=== PATIENT | female | born 1945 | race Caucasian/White ===

== ENCOUNTER → 2016-11-18 | Outpatient (CLI) | payer MEDICARE, OTHER ==
[~2016-11-18] MED LIST: ADDERALL20 MG PO; AMPHETAMINE/DEX30 MG PO; ASPI-COR81 M1 PO; CELEXA20 MG PO; CLARITIN10 MG PO; FLUOXETINE HYDR20 M1 PO; LANTUS SOLOS100 U/M1 SC; MACROBID100 M1 PO; METFORMIN HCL750 MG PO; PRILOSEC20 MG PO; SIMVASTATIN20 MG PO; ZOFRAN ODT4 MG SL; [UNRECOGNIZED DRUG - SUPPLY] SC
--- NOTE | ~2016-11-18 | EKG ---
[place], [place] ELECTROCARDIOGRAM REPORT NAME: SIA LAUREANO UNIT #: [id number] ROOM: DOCTOR: KALYAN GAUTHIER MD BIRTHDATE: [birth year] DOS: 11/18/2016 TIME: 14:46. Normal sinus rhythm, abnormal R-wave progression with early transition, otherwise normal tracing. KALYAN GAUTHIER MD CM:EKGRPT:ELECTROCARDIOGRAM REPORT 14 48 KALYAN GAUTHIER MD
[2016-11-18 15:09] LABS: BASO % 0.3 % (0.0-1.0); EOS # 0.1 10*3/uL (0.0-0.4); EOS % 1.9 % (1.0-4.0); HEMATOCRIT 41.6 % (37.0-47.0); HEMOGLOBIN 13.6 g/dl (12.0-16.0); LYMPH # 1.7 10*3/uL (1.3-4.4); LYMPH % 24.8 % (27.0-41.0); MEAN CELL VOLUME 88.3 fl (81.0-99.0); MEAN CORPUSCULAR HGB 28.9 pg (27.0-31.0); MEAN CORPUSCULAR HGB CONC 32.7 g/dl (33.0-37.0); MEAN PLATELET VOLUME 11.9 fl (9.6-12.3); MONO # 0.5 10*3/uL (0.1-1.0); MONO % 8.1 % (3.0-9.0); NEUT # 4.3 10*3/uL (2.3-7.9); NEUT % 64.5 % (47.0-73.0); PLATELET COUNT AUTOMATED 249 10*3/uL (130-400); RED BLOOD COUNT 4.71 10*6/uL (4.10-5.10); RED CELL DISTRI WIDTH 12.9 % (0-14.5); WHITE BLOOD COUNT 6.7 10*3/uL (4.8-10.8)
[2016-11-18 15:22] LABS: BUN 17 mg/dl (7-24); CARBON DIOXIDE 23 mmol/L (21-32); CHLORIDE 110 mmol/L (98-107); EST GLOM FILT AFRICAN AMERICAN > 60 ml/min; GLUCOSE 82 mg/dL (65-99); POTASSIUM 4.3 mmol/L (3.5-5.1); SODIUM 142 mmol/L (136-145)
== END | disposition home or self-care (01) ==
LOC: LAB 14:27
PROVIDERS: Specialist
DX: C50.512 Malignant neoplasm of lower-outer quadrant of left female breast (principal); Z87.891 Personal history of nicotine dependence

== ENCOUNTER → 2016-11-25 | Outpatient (CLI) | payer MEDICARE, OTHER | END | disposition home or self-care (01) | LOC: CT 09:55 | DX: R06.02 Shortness of breath (principal) ==

== ENCOUNTER → 2016-11-29 | Outpatient (CLI) | payer MEDICARE, OTHER ==
[~2016-11-29] MED LIST changes: +ARIMIDEX1 MG PO; +FLUOXETINE HYDR40 MG PO; +LEVOTHYROXIN0.075 MG PO; +LEVOTHYROXINE0.05 MG PO
--- NOTE | ~2016-11-29 | ST ---
[place], [place] EXERCISE STRESS TEST REPORT NAME: SIA LAUREANO UNIT #: [id number] ROOM: DOCTOR: STEVEN DIMAS MD BIRTHDATE: [birth year] DOS: 11/29/2016 LEXISCAN STRESS TEST REASON FOR TESTING: Evaluation of an abnormal EKG. DESCRIPTION: After explaining the procedure and obtaining consent, the patient was subjected to Lexiscan infusion. Her resting heart rate was 73 with a blood pressure of 138/74. EKG showed sinus, nonspecific ST-T wave changes. The patient did not have any complaints during the Lexiscan infusion. After infusion was over, she was injected with Cardiolite and stress images were taken. ASSESSMENT AND PLAN: Lexiscan stress test without any ST-T wave changes or arrhythmias. Cardiolite images pending. STEVEN DIMAS MD CM:STRESS:EXERCISE STRESS TEST REPORT [id number] STEVEN DIMAS MD
== END | disposition home or self-care (01) ==
LOC: CARD 02:54
DX: R06.02 Shortness of breath (principal); R07.89 Other chest pain; R94.31 Abnormal electrocardiogram [ECG] [EKG]

== ENCOUNTER → 2017-07-03 | Outpatient (CLI) | payer MEDICARE, OTHER ==
[2017-07-03 09:41] LABS: BASO % 0.5 % (0.0-1.0); EOS # 0.1 10*3/uL (0.0-0.4); EOS % 1.8 % (1.0-4.0); HEMATOCRIT 44.4 % (37.0-47.0); HEMOGLOBIN 14.6 g/dl (12.0-16.0); LYMPH # 1.1 10*3/uL (1.3-4.4); LYMPH % 18.8 % (27.0-41.0); MEAN CELL VOLUME 89.3 fl (81.0-99.0); MEAN CORPUSCULAR HGB 29.4 pg (27.0-31.0); MEAN CORPUSCULAR HGB CONC 32.9 g/dl (33.0-37.0); MEAN PLATELET VOLUME 11.6 fl (9.6-12.3); MONO # 0.5 10*3/uL (0.1-1.0); MONO % 8.1 % (3.0-9.0); NEUT # 4.2 10*3/uL (2.3-7.9); NEUT % 70.3 % (47.0-73.0); PLATELET COUNT AUTOMATED 215 10*3/uL (130-400); RED BLOOD COUNT 4.97 10*6/uL (4.10-5.10); RED CELL DISTRI WIDTH 12.9 % (0-14.5)
[2017-07-03 10:13] LABS: ALBUMIN 3.9 gm/dl (3.1-4.5); ALKALINE PHOSPHATASE 83 U/L (45-117); BUN 16 mg/dl (7-24); CHLORIDE 103 mmol/L (98-107); CHOLESTEROL 173 mg/dL (<200); CREATININE 0.93 mg/dL (0.55-1.02); FREE T4 1.24 ng/dl (0.76-1.46); HDL CHOLESTEROL 68 mg/dl (40-60); LDL CHOLESTEROL 77 mg/dL (9-159); SGOT/AST 18 IU/L (3-35); SGPT/ALT 28 U/L (12-78); SODIUM 140 mmol/L (136-145); TOTAL PROTEIN 7.5 gm/dL (6.4-8.2); TRIGLYCERIDES 139 mg/dl (<150); VLDL CHOLESTEROL 28 mg/dL (6-40)
[2017-07-03 10:54] LABS: VITAMIN D, 25-HYDROXY 78.1 ng/mL (30-100)
[2017-07-04 18:07] LABS: THYROGLOBULIN ANTIBODY 41.3 IU/mL (0.0-0.9)
== END | disposition home or self-care (01) ==
LOC: LAB 09:01
PROVIDERS: Internal Medicine Endocrinology, Diabetes & Metabolism
DX: E11.65 Type 2 diabetes mellitus with hyperglycemia (principal); K21.9 Gastro-esophageal reflux disease without esophagitis; E78.00 Pure hypercholesterolemia, unspecified; M54.08 Panniculitis affecting regions of neck and back, sacral and sacrococcygeal region; E55.9 Vitamin D deficiency, unspecified; E53.8 Deficiency of other specified B group vitamins; R19.7 Diarrhea, unspecified; R53.83 Other fatigue; R51 Headache; R23.2 Flushing

== ENCOUNTER → 2017-07-21 | Outpatient (CLI) | payer MEDICARE, OTHER | END | disposition home or self-care (01) | LOC: RAD 13:30 | DX: Z13.820 Encounter for screening for osteoporosis (principal); M81.0 Age-related osteoporosis without current pathological fracture; M89.8X9 Other specified disorders of bone, unspecified site; T45.1X5A Adverse effect of antineoplastic and immunosuppressive drugs, initial encounter; Z78.0 Asymptomatic menopausal state; Z85.3 Personal history of malignant neoplasm of breast ==

== ENCOUNTER → 2018-01-03 | Outpatient (CLI) | payer MEDICARE, OTHER ==
[2018-01-03 10:10] LABS: BASO % 0.4 % (0.0-1.0); EOS # 0.2 10*3/uL (0.0-0.4); EOS % 3.1 % (1.0-4.0); HEMATOCRIT 41.8 % (37.0-47.0); HEMOGLOBIN 13.4 g/dl (12.0-16.0); LYMPH # 1.6 10*3/uL (1.3-4.4); LYMPH % 28.2 % (27.0-41.0); MEAN CELL VOLUME 88.9 fl (81.0-99.0); MEAN CORPUSCULAR HGB 28.5 pg (27.0-31.0); MEAN CORPUSCULAR HGB CONC 32.1 g/dl (33.0-37.0); MEAN PLATELET VOLUME 11.9 fl (9.6-12.3); MONO # 0.5 10*3/uL (0.1-1.0); NEUT # 3.3 10*3/uL (2.3-7.9); NEUT % 59.1 % (47.0-73.0); PLATELET COUNT AUTOMATED 225 10*3/uL (130-400); RED CELL DISTRI WIDTH 12.9 % (0-14.5); WHITE BLOOD COUNT 5.5 10*3/uL (4.8-10.8)
[2018-01-03 10:42] LABS: BUN 16 mg/dl (7-24); CHLORIDE 104 mmol/L (98-107); CHOLESTEROL 154 mg/dL (<200); CREATININE 0.89 mg/dL (0.55-1.02); FREE T4 1.21 ng/dl (0.76-1.46); HDL CHOLESTEROL 58 mg/dl (40-60); LDL CHOLESTEROL 64 mg/dL (9-159); POTASSIUM 4.1 mmol/L (3.5-5.1); SGPT/ALT 21 U/L (12-78); SODIUM 139 mmol/L (136-145); TRIGLYCERIDES 158 mg/dl (<150); VLDL CHOLESTEROL 32 mg/dL (6-40)
== END | disposition home or self-care (01) ==
LOC: LAB 09:13
PROVIDERS: Internal Medicine Endocrinology, Diabetes & Metabolism
DX: E11.65 Type 2 diabetes mellitus with hyperglycemia (principal); E78.00 Pure hypercholesterolemia, unspecified; E03.8 Other specified hypothyroidism; E55.9 Vitamin D deficiency, unspecified

== ENCOUNTER → 2018-04-18 | Outpatient (CLI) | payer MEDICARE, OTHER ==
[2018-04-18 09:28] LABS: BASO % 0.2 % (0.0-1.0); EOS # 0.1 10*3/uL (0.0-0.4); EOS % 1.1 % (1.0-4.0); HEMATOCRIT 44.5 % (37.0-47.0); LYMPH # 1.9 10*3/uL (1.3-4.4); MEAN CELL VOLUME 90.1 fl (81.0-99.0); MEAN CORPUSCULAR HGB 28.3 pg (27.0-31.0); MEAN CORPUSCULAR HGB CONC 31.5 g/dl (33.0-37.0); MEAN PLATELET VOLUME 11.4 fl (9.6-12.3); MONO # 0.7 10*3/uL (0.1-1.0); NEUT # 6.4 10*3/uL (2.3-7.9); NEUT % 69.4 % (47.0-73.0); PLATELET COUNT AUTOMATED 199 10*3/uL (130-400); RED BLOOD COUNT 4.94 10*6/uL (4.10-5.10); RED CELL DISTRI WIDTH 13.2 % (0-14.5); WHITE BLOOD COUNT 9.2 10*3/uL (4.8-10.8)
[2018-04-18 10:02] LABS: BUN 17 mg/dl (7-24); CHLORIDE 105 mmol/L (98-107); CHOLESTEROL 151 mg/dL (<200); FREE T4 1.19 ng/dl (0.76-1.46); HDL CHOLESTEROL 79 mg/dl (40-60); LDL CHOLESTEROL 48 mg/dL (9-159); POTASSIUM 4.2 mmol/L (3.5-5.1); SGPT/ALT 26 U/L (12-78); SODIUM 141 mmol/L (136-145); TRIGLYCERIDES 119 mg/dl (<150); VLDL CHOLESTEROL 24 mg/dL (6-40)
== END | disposition home or self-care (01) ==
LOC: LAB 09:11
PROVIDERS: Internal Medicine Endocrinology, Diabetes & Metabolism
DX: E78.00 Pure hypercholesterolemia, unspecified (principal); E03.8 Other specified hypothyroidism; E55.9 Vitamin D deficiency, unspecified; E11.65 Type 2 diabetes mellitus with hyperglycemia

== ENCOUNTER → 2018-07-24 | Outpatient (CLI) | payer MEDICARE, OTHER ==
[2018-07-24 09:40] LABS: BASO % 0.2 % (0.0-1.0); EOS # 0.1 10*3/uL (0.0-0.4); EOS % 1.6 % (1.0-4.0); HEMATOCRIT 47.8 % (37.0-47.0); HEMOGLOBIN 15.2 g/dl (12.0-16.0); LYMPH # 1.6 10*3/uL (1.3-4.4); LYMPH % 18.8 % (27.0-41.0); MEAN CORPUSCULAR HGB CONC 31.8 g/dl (33.0-37.0); MEAN PLATELET VOLUME 11.6 fl (9.6-12.3); MONO # 0.8 10*3/uL (0.1-1.0); NEUT % 69.9 % (47.0-73.0); PLATELET COUNT AUTOMATED 202 10*3/uL (130-400); RED BLOOD COUNT 5.25 10*6/uL (4.10-5.10); RED CELL DISTRI WIDTH 13.1 % (0-14.5); WHITE BLOOD COUNT 8.7 10*3/uL (4.8-10.8)
[2018-07-24 10:12] LABS: BUN 22 mg/dl (7-24); CHLORIDE 103 mmol/L (98-107); CREATININE 0.88 mg/dL (0.55-1.02); POTASSIUM 4.2 mmol/L (3.5-5.1); SODIUM 139 mmol/L (136-145)
[2018-07-24 10:23] LABS: CHOLESTEROL 163 mg/dL (<200); FREE T4 1.21 ng/dl (0.76-1.46); HDL CHOLESTEROL 70 mg/dl (40-60); LDL CHOLESTEROL 72 mg/dL (9-159); SGPT/ALT 32 U/L (12-78); TRIGLYCERIDES 107 mg/dl (<150); VLDL CHOLESTEROL 21 mg/dL (6-40)
== END | disposition home or self-care (01) ==
LOC: LAB 09:03
PROVIDERS: Internal Medicine Endocrinology, Diabetes & Metabolism
DX: E11.65 Type 2 diabetes mellitus with hyperglycemia (principal); E78.00 Pure hypercholesterolemia, unspecified; E03.8 Other specified hypothyroidism; E55.9 Vitamin D deficiency, unspecified

== ENCOUNTER → 2019-08-30 | Outpatient (CLI) | payer MEDICARE ==
[2019-08-30 09:15] LABS: BASO % 0.3 % (0.0-1.0); EOS # 0.1 10*3/uL (0.0-0.4); EOS % 1.8 % (1.0-4.0); HEMATOCRIT 43.1 % (37.0-47.0); HEMOGLOBIN 13.4 g/dl (12.0-16.0); LYMPH # 1.6 10*3/uL (1.3-4.4); LYMPH % 21.9 % (27.0-41.0); MEAN CELL VOLUME 91.3 fl (81.0-99.0); MEAN CORPUSCULAR HGB 28.4 pg (27.0-31.0); MEAN CORPUSCULAR HGB CONC 31.1 g/dl (33.0-37.0); MONO # 0.7 10*3/uL (0.1-1.0); MONO % 9.5 % (3.0-9.0); NEUT # 4.8 10*3/uL (2.3-7.9); NEUT % 66.2 % (47.0-73.0); PLATELET COUNT AUTOMATED 259 10*3/uL (130-400); RED BLOOD COUNT 4.72 10*6/uL (4.10-5.10); RED CELL DISTRI WIDTH 13.6 % (0-14.5); WHITE BLOOD COUNT 7.3 10*3/uL (4.8-10.8)
[2019-08-31 07:06] LABS: HEPATITIS B SURFACE AG Negative (Negative); HEPATITIS C VIRUS ANTIBODY <0.1 s/co (0.0-0.9); RHEUMATOID ARTHRITIS FACTOR <10.0 IU/mL (0.0-13.9)
[2019-09-01 10:03] LABS: LUPUS DRVVT 31.9 sec (0.0-47.0); PTT-LA 32.7 sec (0.0-51.9)
[2019-09-01 11:05] LABS: LUPUS REFLEX INTERPRETATION Comment: (.)
[2019-09-01 19:03] LABS: CCP ANTIBODIES IGG/IGA 7 units (0-19)
[2019-09-02 11:05] LABS: ANTI-RNP ANTIBODIES 0.3 AI (0.0-0.9)
[2019-09-04 10:06] LABS: HLA-B27 ANTIGEN Negative (.)
== END | disposition home or self-care (01) ==
LOC: LAB 08:20
PROVIDERS: Orthopaedic Surgery
DX: M47.816 Spondylosis without myelopathy or radiculopathy, lumbar region (principal); M51.36 Other intervertebral disc degeneration, lumbar region; E78.00 Pure hypercholesterolemia, unspecified; R53.83 Other fatigue

== ENCOUNTER → 2019-09-05 | Outpatient (CLI) | payer MEDICARE ==
[2019-09-05 09:45] LABS: BASO % 0.3 % (0.0-1.0); EOS # 0.2 10*3/uL (0.0-0.4); EOS % 2.2 % (1.0-4.0); HEMATOCRIT 43.1 % (37.0-47.0); HEMOGLOBIN 13.5 g/dl (12.0-16.0); LYMPH # 1.6 10*3/uL (1.3-4.4); LYMPH % 21.4 % (27.0-41.0); MEAN CELL VOLUME 89.8 fl (81.0-99.0); MEAN CORPUSCULAR HGB 28.1 pg (27.0-31.0); MEAN CORPUSCULAR HGB CONC 31.3 g/dl (33.0-37.0); MEAN PLATELET VOLUME 11.3 fl (9.6-12.3); MONO # 0.7 10*3/uL (0.1-1.0); MONO % 9.4 % (3.0-9.0); NEUT # 4.9 10*3/uL (2.3-7.9); NEUT % 66.4 % (47.0-73.0); PLATELET COUNT AUTOMATED 223 10*3/uL (130-400); RED CELL DISTRI WIDTH 13.5 % (0-14.5); WHITE BLOOD COUNT 7.3 10*3/uL (4.8-10.8)
[2019-09-05 09:55] LABS: ACT PARTIAL THROMBO TIME 24.2 SECONDS (20.0-32.1); INTERNATIONAL NORM RATIO 0.9 (2.0-3.5)
[2019-09-05 10:19] LABS: BUN 24 mg/dl (7-24); CHLORIDE 107 mmol/L (98-107); CREATININE 0.91 mg/dL (0.55-1.02); POTASSIUM 4.3 mmol/L (3.5-5.1); SODIUM 141 mmol/L (136-145)
== END | disposition home or self-care (01) ==
LOC: LAB 09:11
PROVIDERS: Internal Medicine
DX: E11.9 Type 2 diabetes mellitus without complications (principal); N64.89 Other specified disorders of breast; Z01.818 Encounter for other preprocedural examination; Z79.01 Long term (current) use of anticoagulants

== ENCOUNTER → 2021-03-25 | Outpatient (CLI) | payer MEDICARE ==
[2021-03-25 11:30] LABS: BASO % 0.3 % (0.0-1.0); EOS # 0.1 10*3/uL (0.0-0.4); EOS % 1.5 % (1.0-4.0); HEMATOCRIT 42.7 % (37.0-47.0); LYMPH # 1.2 10*3/uL (1.3-4.4); LYMPH % 16.5 % (27.0-41.0); MEAN CELL VOLUME 89.3 fl (81.0-99.0); MEAN CORPUSCULAR HGB 27.8 pg (27.0-31.0); MEAN CORPUSCULAR HGB CONC 31.1 g/dl (33.0-37.0); MEAN PLATELET VOLUME 11.7 fl (9.6-12.3); MONO # 0.6 10*3/uL (0.1-1.0); MONO % 7.8 % (3.0-9.0); NEUT # 5.4 10*3/uL (2.3-7.9); NEUT % 73.5 % (47.0-73.0); PLATELET COUNT AUTOMATED 216 10*3/uL (130-400); RED BLOOD COUNT 4.78 10*6/uL (4.10-5.10); WHITE BLOOD COUNT 7.4 10*3/uL (4.8-10.8)
[2021-03-25 11:47] LABS: ALBUMIN 3.6 gm/dl (3.1-4.5); BUN 19 mg/dl (7-24); CHLORIDE 109 mmol/L (98-107); CHOLESTEROL 120 mg/dL (<200); CREATININE 0.62 mg/dL (0.55-1.02); LDL CHOLESTEROL 39 mg/dL (9-159); POTASSIUM 4.3 mmol/L (3.5-5.1); SGOT/AST 23 IU/L (3-35); SGPT/ALT 27 U/L (12-78); SODIUM 141 mmol/L (136-145); T3 UPTAKE 33 % (31-39); TRIGLYCERIDES 79 mg/dl (<150)
[2021-03-25 11:55] LABS: ALKALINE PHOSPHATASE 86 U/L (45-117); THYROXINE (T4) TOTAL 15.6 ug/dl (4.8-13.9); TOTAL PROTEIN 6.9 gm/dL (6.4-8.2)
[2021-03-25 12:10] LABS: VITAMIN D, 25-HYDROXY 27.1 ng/mL (30-100)
== END | disposition home or self-care (01) ==
LOC: LAB 11:07
PROVIDERS: ATTEND Internal Medicine
DX: E11.9 Type 2 diabetes mellitus without complications (principal); I10 Essential (primary) hypertension; D64.9 Anemia, unspecified; E03.9 Hypothyroidism, unspecified; R07.81 Pleurodynia; E55.9 Vitamin D deficiency, unspecified

== ENCOUNTER → 2021-06-07 | Outpatient (CLI) | payer MEDICARE ==
[~2021-06-07] MED LIST changes: +ATIVAN1 MG PO; +CALCIUM CIT PO; +CELECOXIB200 M1 PO; +JANUVIA100 MG PO; +LISINOPRIL2.5 MG PO; +ZETIA10 MG PO
== END | disposition home or self-care (01) ==
LOC: CARD 00:46
PROVIDERS: ATTEND Internal Medicine
DX: R07.9 Chest pain, unspecified (principal)

== ENCOUNTER → 2021-06-15 | Outpatient (CLI) | payer MEDICARE | END | disposition home or self-care (01) | LOC: CARD 06-08 14:00 | PROVIDERS: ATTEND Internal Medicine | DX: I35.8 Other nonrheumatic aortic valve disorders (principal); R06.02 Shortness of breath ==

== ENCOUNTER → 2022-01-07 | Outpatient (CLI) | payer MEDICARE | END | disposition home or self-care (01) | LOC: US 13:30 | PROVIDERS: ATTEND Internal Medicine | DX: I65.21 Occlusion and stenosis of right carotid artery (principal); I10 Essential (primary) hypertension ==

== ENCOUNTER → 2022-05-25 | Outpatient (CLI) | payer MEDICARE | END | disposition home or self-care (01) | LOC: MRI 13:00 | PROVIDERS: ATTEND Internal Medicine | DX: S83.242A Other tear of medial meniscus, current injury, left knee, initial encounter (principal); M17.12 Unilateral primary osteoarthritis, left knee; M25.462 Effusion, left knee; M25.762 Osteophyte, left knee; R26.9 Unspecified abnormalities of gait and mobility; X58.XXXA Exposure to other specified factors, initial encounter; Y93.89 Activity, other specified; Y92.89 Other specified places as the place of occurrence of the external cause; Y99.8 Other external cause status ==

== ENCOUNTER 2023-08-06 11:53 | Emergency (ER) | payer OTHER ==
[~2023-08-06] VITALS: Ht 160 cm
[~2023-08-06 11:53] MED LIST changes: +AMOX-CLAV 875-1 EACH PO; +MELOXICAM15 MG PO
[2023-08-06 12:34] VITALS: BP 142/62
[2023-08-06 13:33] LABS: BASO % 0.4 % (0.0-1.0); EOS # 0.1 10*3/uL (0.0-0.4); EOS % 1.6 % (1.0-4.0); HEMATOCRIT 38.6 % (37.0-47.0); LYMPH # 0.8 10*3/uL (1.3-4.4); LYMPH % 10.5 % (27.0-41.0); MEAN CELL VOLUME 89.6 fl (81.0-99.0); MEAN CORPUSCULAR HGB 27.6 pg (27.0-31.0); MEAN CORPUSCULAR HGB CONC 30.8 g/dl (33.0-37.0); MEAN PLATELET VOLUME 11.6 fl (9.6-12.3); MONO # 0.9 10*3/uL (0.1-1.0); MONO % 10.8 % (3.0-9.0); NEUT # 6.2 10*3/uL (2.3-7.9); NEUT % 76.6 % (47.0-73.0); PLATELET COUNT AUTOMATED 222 10*3/uL (130-400); RED BLOOD COUNT 4.31 10*6/uL (4.10-5.10); RED CELL DISTRI WIDTH 14.2 % (0-14.5)
[2023-08-06 13:56] LABS: ALKALINE PHOSPHATASE 80 U/L (46-116); BUN 11 mg/dl (9-23); CHLORIDE 107 mmol/L (98-107); POTASSIUM 3.9 mmol/L (3.4-5.1); SGPT/ALT 16 U/L (5-49); TOTAL PROTEIN 6.7 gm/dL (6.0-8.0)
[2023-08-06] MEDS ORDERED: LEVOFLOXACIN750 M2 PO (14:47)
[2023-08-06] MEDS ORDERED: PERCOCET 5-3251 EACH PO (14:48)
== END 2023-08-06 15:31 | disposition home or self-care (01) ==
LOC: ED 11:53
PROVIDERS: Emergency Medicine
DX: J18.9 Pneumonia, unspecified organism (principal); S22.038A Other fracture of third thoracic vertebra, initial encounter for closed fracture; S22.42XA Multiple fractures of ribs, left side, initial encounter for closed fracture; K21.9 Gastro-esophageal reflux disease without esophagitis; I10 Essential (primary) hypertension; E11.9 Type 2 diabetes mellitus without complications; E78.00 Pure hypercholesterolemia, unspecified; E03.9 Hypothyroidism, unspecified; Z98.890 Other specified postprocedural states; W01.10XA Fall on same level from slipping, tripping and stumbling with subsequent striking against unspecified object, initial encounter; Y93.89 Activity, other specified; Y92.000 Kitchen of unspecified non-institutional (private) residence as the place of occurrence of the external cause; Y99.8 Other external cause status

== ENCOUNTER 2023-08-11 14:10 | Emergency (ER) | payer OTHER ==
[~2023-08-11] VITALS: Ht 160 cm; Wt 72.6 kg
[~2023-08-11 14:10] MED LIST changes: +LEVOFLOXACIN750 M2 PO; +PERCOCET 5-3251 EACH PO
[2023-08-11 16:06] VITALS: BP 151/78
[2023-08-11] MEDS ORDERED: VIBRAMYCIN100 MG PO (18:32)
[2023-08-11] MEDS ORDERED: PERCOCET 5-3251 EACH PO (18:32)
== END 2023-08-11 18:53 | disposition home or self-care (01) ==
LOC: ED 14:10
DX: S22.42XA Multiple fractures of ribs, left side, initial encounter for closed fracture (principal); K21.9 Gastro-esophageal reflux disease without esophagitis; I10 Essential (primary) hypertension; E11.9 Type 2 diabetes mellitus without complications; E78.00 Pure hypercholesterolemia, unspecified; E03.9 Hypothyroidism, unspecified; Z98.890 Other specified postprocedural states; W17.89XA Other fall from one level to another, initial encounter; Y93.89 Activity, other specified; Y92.009 Unspecified place in unspecified non-institutional (private) residence as the place of occurrence of the external cause; Y99.8 Other external cause status

== ENCOUNTER → 2023-11-13 | Outpatient (CLI) | payer OTHER ==
[~2023-11-13] MED LIST changes: +VIBRAMYCIN100 MG PO
== END | disposition home or self-care (01) ==
LOC: MAMMO 11:00
PROVIDERS: ATTEND Internal Medicine
DX: Z13.820 Encounter for screening for osteoporosis (principal); Z78.0 Asymptomatic menopausal state

== ENCOUNTER → 2023-11-21 | Outpatient (CLI) | payer OTHER | END | disposition home or self-care (01) | LOC: MAMMO 11-13 13:00 | PROVIDERS: ATTEND Internal Medicine | DX: N63.21 Unspecified lump in the left breast, upper outer quadrant (principal); R92.1 Mammographic calcification found on diagnostic imaging of breast ==

== ENCOUNTER → 2023-12-05 | Outpatient (CLI) | payer OTHER ==
[~2023-12-05] MED LIST changes: +SODIUM BICARBONATE 4.2% 5 ML VIAL ONE
== END ==
LOC: RAD 11-30 11:00 → SDC 11-30 11:00 → EDSTATUS 11-30 11:00 → US 11-30 11:00 → MAMMO 11-30 12:00 → SDC 02:58
PROVIDERS: ATTEND Internal Medicine
DX: N63.21 Unspecified lump in the left breast, upper outer quadrant (principal); N64.1 Fat necrosis of breast; R92.8 Other abnormal and inconclusive findings on diagnostic imaging of breast

== ENCOUNTER → 2023-12-12 | Outpatient (CLI) | payer OTHER ==
[~2023-12-12] MED LIST changes: +DENOSUMAB 60 MG/ML SYRINGE SC ONE; -SODIUM BICARBONATE 4.2% 5 ML VIAL ONE
[2023-12-12 10:02] VITALS: BP 128/50
== END | disposition home or self-care (01) ==
LOC: INJECTION 09:39
PROVIDERS: ATTEND Internal Medicine
DX: M81.0 Age-related osteoporosis without current pathological fracture (principal); I10 Essential (primary) hypertension; E11.9 Type 2 diabetes mellitus without complications; E03.9 Hypothyroidism, unspecified; K21.9 Gastro-esophageal reflux disease without esophagitis; E78.00 Pure hypercholesterolemia, unspecified; Z85.3 Personal history of malignant neoplasm of breast; Z90.12 Acquired absence of left breast and nipple; Z98.890 Other specified postprocedural states

== ENCOUNTER → 2024-12-24 | Outpatient (CLI) | payer OTHER ==
[~2024-12-24] MED LIST changes: -DENOSUMAB 60 MG/ML SYRINGE SC ONE
[2024-12-24 15:47] LABS: BASO % 0.2 % (0.0-1.0); EOS # 0.3 10*3/uL (0.0-0.4); EOS % 3.4 % (1.0-4.0); HEMATOCRIT 43.7 % (37.0-47.0); MEAN CELL VOLUME 88.6 fl (81.0-99.0); MEAN CORPUSCULAR HGB 28.4 pg (27.0-31.0); MONO # 0.6 10*3/uL (0.1-1.0); MONO % 6.6 % (3.0-9.0); NEUT # 6.6 10*3/uL (2.3-7.9); NEUT % 76.5 % (47.0-73.0); PLATELET COUNT AUTOMATED 230 10*3/uL (130-400); RED BLOOD COUNT 4.93 10*6/uL (4.10-5.10); RED CELL DISTRI WIDTH 13.5 % (0-14.5); WHITE BLOOD COUNT 8.6 10*3/uL (4.8-10.8)
[2024-12-24 16:26] LABS: ALKALINE PHOSPHATASE 86 U/L (46-116); BUN 14 mg/dl (9-23); CHLORIDE 102 mmol/L (98-107); FREE T4 1.24 ng/dl (0.89-1.76); POTASSIUM 4.5 mmol/L (3.4-5.1); SGPT/ALT 17 U/L (5-49); TOTAL PROTEIN 7.1 gm/dL (6.0-8.0)
[2024-12-24 16:27] LABS: VITAMIN D, 25-HYDROXY 35.1 ng/mL (30-100)
== END | disposition home or self-care (01) ==
LOC: LAB 14:28 → CARD 15:00
PROVIDERS: Internal Medicine; ATTEND Physician Assistant
DX: Z13.220 Encounter for screening for lipoid disorders (principal); Z13.0 Encounter for screening for diseases of the blood and blood-forming organs and certain disorders involving the immune mechanism; Z13.1 Encounter for screening for diabetes mellitus; Z13.21 Encounter for screening for nutritional disorder; Z13.228 Encounter for screening for other metabolic disorders; Z13.6 Encounter for screening for cardiovascular disorders; Z13.89 Encounter for screening for other disorder; R94.31 Abnormal electrocardiogram [ECG] [EKG]; D51.9 Vitamin B12 deficiency anemia, unspecified; F90.0 Attention-deficit hyperactivity disorder, predominantly inattentive type; E55.9 Vitamin D deficiency, unspecified; Z79.899 Other long term (current) drug therapy

== ENCOUNTER → 2025-01-22 | Outpatient (CLI) | payer OTHER ==
[2025-01-22 10:18] LABS: VITAMIN D, 25-HYDROXY 36.9 ng/mL (30-100)
[2025-01-22 10:20] LABS: ALKALINE PHOSPHATASE 75 U/L (46-116); BUN 13 mg/dl (9-23); CHLORIDE 106 mmol/L (98-107); CHOLESTEROL 115 mg/dL (<200); FREE T4 1.57 ng/dl (0.89-1.76); LDL CHOLESTEROL 44 mg/dL (9-159); POTASSIUM 3.9 mmol/L (3.4-5.1); SGPT/ALT 17 U/L (5-49); TOTAL PROTEIN 6.6 gm/dL (6.0-8.0); TRIGLYCERIDES 65 mg/dl (<150)
== END | disposition home or self-care (01) ==
LOC: LAB 09:22
PROVIDERS: ATTEND Internal Medicine
DX: E78.5 Hyperlipidemia, unspecified (principal); E03.9 Hypothyroidism, unspecified; E55.9 Vitamin D deficiency, unspecified; E11.40 Type 2 diabetes mellitus with diabetic neuropathy, unspecified

== ENCOUNTER → 2025-04-14 | Outpatient (CLI) | payer OTHER ==
[~2025-04-14] MED LIST changes: +DENOSUMAB 60 MG/ML SYRINGE SC ONE
[2025-04-14 12:46] VITALS: BP 126/65
== END | disposition home or self-care (01) ==
LOC: INJECTION 12:36
PROVIDERS: ATTEND Internal Medicine
DX: M81.0 Age-related osteoporosis without current pathological fracture (principal); I10 Essential (primary) hypertension; E78.00 Pure hypercholesterolemia, unspecified; E03.9 Hypothyroidism, unspecified; E11.9 Type 2 diabetes mellitus without complications; Z87.891 Personal history of nicotine dependence

== ENCOUNTER → 2025-06-09 | Outpatient (CLI) | payer OTHER ==
[~2025-06-09] MED LIST changes: -DENOSUMAB 60 MG/ML SYRINGE SC ONE
[2025-06-09 12:01] LABS: BUN 14 mg/dl (9-23); FREE T4 1.71 ng/dl (0.89-1.76); LDL CHOLESTEROL 45 mg/dL (9-159); SGPT/ALT 18 U/L (5-49)
[2025-06-09 12:07] LABS: VITAMIN D, 25-HYDROXY 50.7 ng/mL (30-100)
[2025-06-09 12:20] LABS: BILIRUBIN Negative (Negative); BLOOD 1+ (Negative); CLARITY Turbid (Clear); COLOR Yellow (Yellow); KETONE Negative (Negative); LEUKO ESTERASE 3+ (Negative); NITRITE Negative (Negative); PH 6.0 (4.5-8.0); SPECIFIC GRAVITY 1.010 (1.001-1.030); UROBILINOGEN 0.2 E.U./dl (0.0-1.0)
[2025-06-09 12:27] LABS: BACTERIA 2+; WBC TNTC wbc/hpf (0-5)
== END | disposition home or self-care (01) ==
LOC: LAB 11:05
PROVIDERS: ATTEND Internal Medicine
DX: E10.65 Type 1 diabetes mellitus with hyperglycemia (principal); E78.5 Hyperlipidemia, unspecified; E03.9 Hypothyroidism, unspecified; E55.9 Vitamin D deficiency, unspecified